=== PATIENT | female | born 1940 | race Caucasian/White ===

== ENCOUNTER 2017-12-28 21:54 | Emergency (ER) | payer MEDICARE, OTHER ==
[~2017-12-28] VITALS: Ht 167.6 cm; Wt 77.1 kg
[~2017-12-28 21:54] MED LIST: ? ANTIDEPRESSANT; CITA20 PO; CYCL10 PO; ESTR2 PO; Estradiol1 MG PO; LEVSOD50 PO; LISHYD1012 PO; LISHYD2025 PO; LISI20 PO; Levothyroxine200 MCG PO; Milk Of Ma400 MG/5 M PO; NASACORT10.8 ML INH; OXYC5 PO; SENN187 PO; [UNRECOGNIZED DRUG - REMARK]; [UNRECOGNIZED DRUG - REMARK]
[2017-12-28] MEDS ORDERED: ESTR2 PO (21:59)
[2017-12-28 22:21] LABS: BASOPHILS ABSOLUTE AUTO 0.05 K/mm3 (0.00-0.23); BASOPHILS PERCENT AUTO 1 % (0-2); EOSINOPHILS PERCENT AUTO 4 % (0-6); Hemoglobin 13.1 g/dL (11.5-16.0); IMMATURE GRAN ABSOLUTE AUTO 0.02 K/mm3 (0.00-0.10); IMMATURE GRAN PERCENT AUTO 0 % (0-1); LYMPHOCYTES ABSOLUTE AUTO 2.12 K/mm3 (0.84-5.20); LYMPHOCYTES PERCENT AUTO 26 % (21-46); MONOCYTES ABSOLUTE AUTO 0.79 K/mm3 (0.16-1.47); MONOCYTES PERCENT AUTO 10 % (4-13); Mean Corpuscular HGB 29.9 pg (26.0-34.0); Mean Corpuscular HGB Conc 33.6 g/dL (31.5-36.5); Mean Corpuscular Volume 89 fL (80-100); Mean Platelet Volume 9.2 fL (9.1-12.4); NEUTROPHILS ABSOLUTE AUTO 4.81 K/mm3 (1.96-9.15); NEUTROPHILS PERCENT AUTO 60 % (41-73); Platelet Count 265 K/mm3 (150-400); RDW Coefficient Variation 12.7 % (11.7-14.2); RDW Standard Deviation 41.4 fL (35.1-46.3); Red Blood Cell Count 4.38 M/mm3 (3.80-5.20); White Blood Cell Count 8.09 K/mm3 (4.00-11.30)
[2017-12-28 22:42] LABS: Alanine Aminotransfer (ALT/SGP 20 U/L (12-78); Albumin, Blood 3.4 g/dL (3.4-5.0); Alk Phos 83 U/L (50-136); Anion Gap 9 mmol/L (6-16); Aspartate Aminotrans (AST/SGOT 20 U/L (12-37); Bilirubin, Total 0.1 mg/dL (0.1-1.0); Blood Urea Nitrogen 14 mg/dL (8-24); Bun/Creatinine Ratio 16.6 (12.0-20.0); CO2, Blood 23 mmol/L (21-32); Calcium, Blood 8.6 mg/dL (8.5-10.1); Chloride, Blood 103 mmol/L (98-108); Creatinine, Blood 0.85 mg/dL (0.40-1.00); Globulin, Blood 3.5 g/dL (2.2-4.0); Glomerular Filtration Rate >60 (60-); Glucose, Blood 89 mg/dL (70-99); Potassium, Blood 3.7 mmol/L (3.5-5.5); Sodium, Blood 135 mmol/L (136-145); Total Protein, Blood 6.9 g/dL (6.4-8.2); Troponin I <0.015 ng/mL (0.000-0.040)
[2017-12-29] MEDS ORDERED: PROM25 PO (00:53)
[2017-12-29] MEDS ORDERED: Pepcid40 MG PO (00:53)
[2017-12-29] MEDS ORDERED: HYDR1TAB94 PO (00:53)
== END 2017-12-29 01:13 | disposition home or self-care (01) ==
LOC: ER 21:54
PROVIDERS: Emergency Medicine
DX: R10.10 Upper abdominal pain, unspecified (principal); I10 Essential (primary) hypertension; F32.9 Major depressive disorder, single episode, unspecified; Z79.899 Other long term (current) drug therapy
CPT/HCPCS: 36415; 71046; 80053; 83690; 84484; 85025; 93005; 93010; 96360; 99284; J7030

== ENCOUNTER → 2017-12-30 | Outpatient (CLI) | payer MEDICARE, OTHER ==
[~2017-12-30] MED LIST changes: +HYDR1TAB94 PO; +PROM25 PO; +Pepcid40 MG PO
== END | disposition home or self-care (01) ==
LOC: LAB SHORT 13:06 → LAB EV 13:06
DX: N39.0 Urinary tract infection, site not specified (principal)
CPT/HCPCS: 87086

== ENCOUNTER 2018-10-31 17:31 | Emergency (ER) | payer MEDICARE, OTHER ==
[~2018-10-31] VITALS: Ht 167.6 cm; Wt 70.3 kg
[2018-10-31] MEDS ORDERED: Zithromax250 MG PO (19:50)
== END 2018-10-31 19:55 | disposition home or self-care (01) ==
LOC: ER 17:31
DX: R59.0 Localized enlarged lymph nodes (principal); Z79.899 Other long term (current) drug therapy
CPT/HCPCS: 76604; 99283-25

== ENCOUNTER 2018-11-03 20:13 | Emergency (ER) | payer MEDICARE, OTHER ==
[~2018-11-03] VITALS: Ht 172.7 cm; Wt 74.8 kg
[~2018-11-03 20:13] MED LIST changes: +Zithromax250 MG PO
[2018-11-03] MEDS ORDERED: CEFD300 PO (20:19)
[2018-11-03] MEDS ORDERED: Percocet 5-3251 EACH PO (20:19)
[2018-11-04] MEDS ORDERED: Prednisone20 MG PO (00:18)
== END 2018-11-04 00:42 | disposition home or self-care (01) ==
LOC: ER 20:13
DX: R68.84 Jaw pain (principal); R59.0 Localized enlarged lymph nodes; Z79.899 Other long term (current) drug therapy; Z79.52 Long term (current) use of systemic steroids
CPT/HCPCS: 64400; 71046; 99283-25

== ENCOUNTER 2018-11-15 08:11 | Day surgery (SDC) | payer MEDICARE, OTHER ==
[~2018-11-15 08:11] MED LIST changes: +CEFD300 PO; +Percocet 5-3251 EACH PO; +Prednisone20 MG PO
== END 2018-11-15 23:04 | disposition home or self-care (01) ==
LOC: MOI US 08:11
DX: C83.34 Diffuse large B-cell lymphoma, lymph nodes of axilla and upper limb (principal); R59.0 Localized enlarged lymph nodes
CPT/HCPCS: 38505; 76942; 88305; 88341; 88342

== ENCOUNTER 2018-11-23 16:40 | Inpatient (IN) | payer MEDICARE, OTHER ==
[~2018-11-23] VITALS: Ht 167.6 cm; Wt 71.9 kg
[2018-11-23 17:35] LABS: BASOPHILS ABSOLUTE AUTO 0.02 K/mm3 (0.00-0.23); BASOPHILS PERCENT AUTO 0 % (0-2); EOSINOPHILS ABSOLUTE AUTO 0.15 K/mm3 (0.00-0.68); EOSINOPHILS PERCENT AUTO 2 % (0-6); Hematocrit 39.2 % (33.0-51.0); Hemoglobin 12.7 g/dL (11.5-16.0); IMMATURE GRAN ABSOLUTE AUTO 0.04 K/mm3 (0.00-0.10); IMMATURE GRAN PERCENT AUTO 0 % (0-1); LYMPHOCYTES ABSOLUTE AUTO 0.48 K/mm3 (0.84-5.20); LYMPHOCYTES PERCENT AUTO 5 % (21-46); MONOCYTES PERCENT AUTO 10 % (4-13); Mean Corpuscular HGB 29.6 pg (26.0-34.0); Mean Corpuscular HGB Conc 32.4 g/dL (31.5-36.5); Mean Corpuscular Volume 91 fL (80-100); Mean Platelet Volume 8.2 fL (9.1-12.4); NEUTROPHILS ABSOLUTE AUTO 8.57 K/mm3 (1.96-9.15); NEUTROPHILS PERCENT AUTO 84 % (41-73); Platelet Count 307 K/mm3 (150-400); RDW Standard Deviation 43.2 fL (35.1-46.3); Red Blood Cell Count 4.29 M/mm3 (3.80-5.20); White Blood Cell Count 10.26 K/mm3 (4.00-11.30)
[2018-11-23 17:54] LABS: Albumin/Globulin Ratio 0.8 (0.8-1.8); Bilirubin, Total 0.4 mg/dL (0.1-1.0); Bun/Creatinine Ratio 10.9 (12.0-20.0); Calcium, Blood 9.1 mg/dL (8.5-10.1); Creatinine, Blood 3.77 mg/dL (0.40-1.00); Potassium, Blood 5.2 mmol/L (3.5-5.5)
[2018-11-23 23:46] LABS: Source, Urine Clean Catch
[2018-11-23 23:48] LABS: Bilirubin, Urine Neg (Neg); Blood, Urine Neg (Neg); Glucose Qualitative, Urine Neg (Neg); Ketones, Urine Neg (Neg); Leukocyte Esterase, Urine Neg (Neg); Nitrite, Urine Neg (Neg); Protein, Urine 1+ (Neg); Urobilinogen, Urine NORM (Normal)
[2018-11-23 23:50] LABS: Appearance, Urine Hazy (Clear); Color, Urine Yellow (P-Yellow)
[2018-11-23 23:53] LABS: Bacteria Many /hpf; Red Blood Cells, Urine 0-2 /hpf (0-2); Squamous Epithelial Cells Many /hpf (Few)
[2018-11-24 04:43] LABS: Hematocrit 33.6 % (33.0-51.0); Hemoglobin 10.7 g/dL (11.5-16.0); Mean Corpuscular HGB 29.5 pg (26.0-34.0); Mean Corpuscular HGB Conc 31.8 g/dL (31.5-36.5); Mean Corpuscular Volume 93 fL (80-100); Mean Platelet Volume 8.6 fL (9.1-12.4); Platelet Count 256 K/mm3 (150-400); RDW Coefficient Variation 12.8 % (11.7-14.2); RDW Standard Deviation 43.1 fL (35.1-46.3); Red Blood Cell Count 3.63 M/mm3 (3.80-5.20); White Blood Cell Count 8.67 K/mm3 (4.00-11.30)
[2018-11-24 05:04] LABS: Albumin, Blood 2.5 g/dL (3.4-5.0); Albumin/Globulin Ratio 0.8 (0.8-1.8); Bilirubin, Total 0.6 mg/dL (0.1-1.0); Calcium, Blood 8.5 mg/dL (8.5-10.1); Creatinine, Blood 4.1 mg/dL (0.40-1.00); Globulin, Blood 3.3 g/dL (2.2-4.0); Potassium, Blood 5.3 mmol/L (3.5-5.5); Total Protein, Blood 5.8 g/dL (6.4-8.2)
[2018-11-24 08:46] LABS: International Normalized Ratio 0.97; Prothrombin Time Results 10.3 Sec (9.7-11.5)
[2018-11-24] MEDS ORDERED: OXYC10TA19 PO (13:32)
[2018-11-24] MEDS ORDERED: BENADRYL25 MG PO (13:33)
[2018-11-24] MEDS ORDERED: MAGNESIUM400 MG PO (13:35)
[2018-11-24] MEDS ORDERED: DOCU100 PO (13:36)
--- NOTE | 2018-11-24 16:22 | NUR ---
PT ARRIVED TO THE MEDICAL FLOOR FROM THE ER AROUND 1400, A/OX3, PLEASANT AND COOOPERATIVE, THE PT IS UP IND IN HER ROOM THE PT WAS ORIENTED TO THE ROOM CALL SYSTEM AND LAY OUT, FAMILY AT THE BEDSIDE, DR. HAYNES CAME IN TO CONSULT THE PT , THE PT IS TO BE TAKEN FOR NEPHROSTOMY TUBE PLACEMENT EITHER TONOIGHT OR TOMARROW AM, THE PT REPORTED HER VIRGIL 1/10 AT THIS TIME, THE PT IS NPO AT THIS TIME, CALL LIGHT IN REACH, WILL CONTINUE TO MONITOR AND ASSESS FOR CHANGES
--- NOTE | 2018-11-25 04:51 | NUR ---
SHIFT SUMMARY A/O, ABLE TO MAKE NEEDS KNOWN. COOPERATIVE WITH CARE. INDEPENDENT IN THE ROOM. NO C/O PAIN/DISCOMFORT. COMPLETED IV FLUIDS. VOIDING IN RESTROOM WITHOUT COMPLICATIONS. NOTED HYPERTENSION THIS AM; APPEARS TO BE ON TREND WITH PREVIOUS PRESSURES. ALL OTHER VS WNL. NPO AFTER MIDNIGHT. DR. HAYNES INTO VISIT PATIENT AROUND DINNER TIME ON 11/24/18. APPEARED TO REST MUCH OF SHIFT. NEW 20G IV PLACED TO RFA. NO ACUTE CHANGES OVERNIGHT. BED IN LOWEST POSITION. CALL LIGHT AND BELONGINGS WITHIN REACH. WCTM. REPORT TO ONCOMING RN.
[2018-11-25 13:00] LABS: BASOPHILS ABSOLUTE AUTO 0.01 K/mm3 (0.00-0.23); BASOPHILS PERCENT AUTO 0 % (0-2); EOSINOPHILS PERCENT AUTO 0 % (0-6); Hematocrit 34.8 % (33.0-51.0); Hemoglobin 11.1 g/dL (11.5-16.0); IMMATURE GRAN ABSOLUTE AUTO 0.07 K/mm3 (0.00-0.10); IMMATURE GRAN PERCENT AUTO 1 % (0-1); LYMPHOCYTES ABSOLUTE AUTO 0.29 K/mm3 (0.84-5.20); LYMPHOCYTES PERCENT AUTO 2 % (21-46); MONOCYTES PERCENT AUTO 4 % (4-13); Mean Corpuscular HGB 29.8 pg (26.0-34.0); Mean Corpuscular HGB Conc 31.9 g/dL (31.5-36.5); Mean Corpuscular Volume 93 fL (80-100); Mean Platelet Volume 8.2 fL (9.1-12.4); NEUTROPHILS ABSOLUTE AUTO 11.41 K/mm3 (1.96-9.15); NEUTROPHILS PERCENT AUTO 93 % (41-73); Platelet Count 292 K/mm3 (150-400); RDW Coefficient Variation 12.9 % (11.7-14.2); RDW Standard Deviation 44.2 fL (35.1-46.3); Red Blood Cell Count 3.73 M/mm3 (3.80-5.20); White Blood Cell Count 12.28 K/mm3 (4.00-11.30)
[2018-11-25 13:16] LABS: Bun/Creatinine Ratio 12.7 (12.0-20.0); Calcium, Blood 8.8 mg/dL (8.5-10.1); Creatinine, Blood 3.79 mg/dL (0.40-1.00); Potassium, Blood 4.7 mmol/L (3.5-5.5)
--- NOTE | 2018-11-25 19:19 | NUR ---
SHIFT SUMMARY: PT A&O; INDEPENDENT IN ROOM. BILATERAL NEPHROSTOMIES c STENTS THIS AM; DRAINS PATENT & DRAINING. MEDICATED FOR PAIN PER EMAR. MEDIPORT PLACEMENT PLANNED FOR 11/26 IN AM-DR KIRK; PT NPO AFTER MIDNIGHT. REPORT GIVEN TO ONCOMING RN.
--- NOTE | 2018-11-26 04:03 | NUR ---
SHIFT SUMMARY PATIENT HAD NO ACUTE CHANGES OBSERVED THIS SHIFT. AXOX 4 AND SBA W/BILATERAL NEPHROSTOMY TUBES TO BR. PATIENT REPORTS HER BED/GOWN WET WITHOUT SEEING LEAKS FROM TUBES. NO LEAKS OBSERVED. REPORTS FLANK PAIN X 2 AND RECEIVED FENTANYL 50 MCG PER EMAR. PATIENT PAIN REDUCED FOR 5.5 HRS AND ABLE TO SLEEP. BP 182/65 AT SHIFT CHANGE AND REDUCED TO 171/69. DAUGHTER STAYED IN ROOM T/O NIGHT. PIV REMAINS INTACT. ZONING TECHNICIAN REPORTS NSR 71. COOPERATIVE WITH CARE. CALL LIGHT IN REACH. BED IN LOWEST POSITION. WILL CONTINUE TO MONITOR UNTIL DAY SHIFT NURSE ASSUMES CARE.
[2018-11-26 05:13] LABS: BASOPHILS ABSOLUTE AUTO 0.01 K/mm3 (0.00-0.23); BASOPHILS PERCENT AUTO 0 % (0-2); EOSINOPHILS ABSOLUTE AUTO 0.02 K/mm3 (0.00-0.68); EOSINOPHILS PERCENT AUTO 0 % (0-6); Hemoglobin 9.7 g/dL (11.5-16.0); IMMATURE GRAN ABSOLUTE AUTO 0.09 K/mm3 (0.00-0.10); IMMATURE GRAN PERCENT AUTO 1 % (0-1); LYMPHOCYTES PERCENT AUTO 4 % (21-46); MONOCYTES ABSOLUTE AUTO 0.96 K/mm3 (0.16-1.47); MONOCYTES PERCENT AUTO 7 % (4-13); Mean Corpuscular HGB Conc 32.3 g/dL (31.5-36.5); Mean Platelet Volume 8.6 fL (9.1-12.4); NEUTROPHILS ABSOLUTE AUTO 11.54 K/mm3 (1.96-9.15); NEUTROPHILS PERCENT AUTO 88 % (41-73); Platelet Count 283 K/mm3 (150-400); RDW Coefficient Variation 12.8 % (11.7-14.2); RDW Standard Deviation 42.2 fL (35.1-46.3); Red Blood Cell Count 3.34 M/mm3 (3.80-5.20); White Blood Cell Count 13.12 K/mm3 (4.00-11.30)
[2018-11-26 05:17] LABS: Mean Corpuscular Volume 90 fL (80-100)
[2018-11-26 05:46] LABS: Albumin, Blood 2.6 g/dL (3.4-5.0); Albumin/Globulin Ratio 0.8 (0.8-1.8); Bilirubin, Total 0.3 mg/dL (0.1-1.0); Bun/Creatinine Ratio 15.5 (12.0-20.0); Calcium, Blood 8.8 mg/dL (8.5-10.1); Creatinine, Blood 3.03 mg/dL (0.40-1.00); Globulin, Blood 3.3 g/dL (2.2-4.0); Potassium, Blood 4.8 mmol/L (3.5-5.5); Total Protein, Blood 5.9 g/dL (6.4-8.2)
--- NOTE | 2018-11-26 08:45 | NUR ---
INTO [facility] VIA GURNEY. PT [id number] PAIN AT THIS TIME. PT APPEARS SOMEWHAT ANXIOUS. BP 223/90. 12 LEAD EKG COMPLETED UPON ARRIVAL TO [facility]. LUNGS CLEAR-SATS>90% ON RA. NPO STATUS CONFIRMED. NEPHROSTOMY TUBES NOTED BILATERALLY-DRAINING [place] COLORED URINE TO BSD. HISTORY AND ALLERGIES REVIEWED.
--- NOTE | 2018-11-26 18:44 | NUR ---
SHIFT SUMMARY: NO ACUTE CHANGES TO REPORT THIS SHIFT. PT A&O; CALM AND COOPERATIVE WITH CARE; INDEPENDENT IN ROOM. MEDIPORT PLACED TO R CHEST THIS SHIFT. BILATERAL NEPHROSTOMIES 11/25; PATENT AND DRAINING; MEDICATED FOR PAIN PER EMAR. TELE IN PLACE; SR @ 80 PER PRINTING MANAGER DURING MORNING ASSESSMENT. CHEMO SCHEDULED FOR THURSDAY, 11/29. VINAY.
[2018-11-27 05:32] LABS: BASOPHILS PERCENT AUTO 0 % (0-2); EOSINOPHILS ABSOLUTE AUTO 0.02 K/mm3 (0.00-0.68); EOSINOPHILS PERCENT AUTO 0 % (0-6); Hematocrit 29.4 % (33.0-51.0); Hemoglobin 9.6 g/dL (11.5-16.0); IMMATURE GRAN ABSOLUTE AUTO 0.05 K/mm3 (0.00-0.10); IMMATURE GRAN PERCENT AUTO 0 % (0-1); LYMPHOCYTES ABSOLUTE AUTO 0.52 K/mm3 (0.84-5.20); LYMPHOCYTES PERCENT AUTO 5 % (21-46); MONOCYTES ABSOLUTE AUTO 0.82 K/mm3 (0.16-1.47); MONOCYTES PERCENT AUTO 7 % (4-13); Mean Corpuscular HGB Conc 32.7 g/dL (31.5-36.5); Mean Corpuscular Volume 92 fL (80-100); Mean Platelet Volume 8.7 fL (9.1-12.4); NEUTROPHILS ABSOLUTE AUTO 10.09 K/mm3 (1.96-9.15); NEUTROPHILS PERCENT AUTO 88 % (41-73); Platelet Count 274 K/mm3 (150-400); RDW Coefficient Variation 12.9 % (11.7-14.2)
--- NOTE | 2018-11-27 05:49 | NUR ---
SHIFT SUMMARY PT NEPHROSTOMY TUBES DRAINING WELL. PT MEDICATED WITH FENTANYL X2 DURING THE NIGHT FOR BILAT FLANK PAIN. SLEPT FAIR DURING THE NIGHT. DAUGHTER STAYED T/O NIGHT. NO ACUTE CHANGES NOTED, WILL CONTINUE TO MONITOR.
[2018-11-27 06:32] LABS: Bun/Creatinine Ratio 19.1 (12.0-20.0); Calcium, Blood 8.6 mg/dL (8.5-10.1); Creatinine, Blood 2.04 mg/dL (0.40-1.00); Potassium, Blood 4.4 mmol/L (3.5-5.5)
--- NOTE | 2018-11-27 18:12 | NUR ---
SHIFT SUMMARY PATIENT A&O X4, SBA TO BATHROOM. C/O BILAT FLANK PAIN THROUGHOUT THE SHIFT. RN MEDICATED PER E NOV. DENIES SOB OR NAUSEA. FLUIDS RUNNING @ 75. LEFT AND RIGHT NEPHROSTOMY PLACE 11/25/18, PATENT AND DRAINING A LIGHT PINK FLUID. SITES BOTH WNL. FAMILY AT HER SIDE THROUGHOUT THE SHIFT. NO OTHER AUCTE CHANGES. RN WILL CONTINUE TO MONITOR.
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
[2018-11-28 05:32] LABS: BASOPHILS ABSOLUTE AUTO 0.01 K/mm3 (0.00-0.23); BASOPHILS PERCENT AUTO 0 % (0-2); EOSINOPHILS ABSOLUTE AUTO 0.03 K/mm3 (0.00-0.68); EOSINOPHILS PERCENT AUTO 0 % (0-6); Hematocrit 32.8 % (33.0-51.0); Hemoglobin 10.7 g/dL (11.5-16.0); IMMATURE GRAN ABSOLUTE AUTO 0.06 K/mm3 (0.00-0.10); IMMATURE GRAN PERCENT AUTO 1 % (0-1); LYMPHOCYTES PERCENT AUTO 8 % (21-46); MONOCYTES ABSOLUTE AUTO 1.25 K/mm3 (0.16-1.47); MONOCYTES PERCENT AUTO 11 % (4-13); Mean Corpuscular HGB 29.5 pg (26.0-34.0); Mean Corpuscular HGB Conc 32.6 g/dL (31.5-36.5); Mean Corpuscular Volume 90 fL (80-100); Mean Platelet Volume 8.5 fL (9.1-12.4); NEUTROPHILS PERCENT AUTO 80 % (41-73); Platelet Count 316 K/mm3 (150-400); RDW Coefficient Variation 12.9 % (11.7-14.2); Red Blood Cell Count 3.63 M/mm3 (3.80-5.20); White Blood Cell Count 11.25 K/mm3 (4.00-11.30)
[2018-11-28 05:53] LABS: Albumin, Blood 2.7 g/dL (3.4-5.0); Anion Gap 9 mmol/L (6-16); Blood Urea Nitrogen 30 mg/dL (8-24); Bun/Creatinine Ratio 23.8 (12.0-20.0); CO2, Blood 26 mmol/L (21-32); Calcium, Blood 8.8 mg/dL (8.5-10.1); Chloride, Blood 104 mmol/L (98-108); Creatinine, Blood 1.26 mg/dL (0.40-1.00); Glomerular Filtration Rate 44 (60-); Glucose, Blood 91 mg/dL (70-99); Phosphorus, Blood 2.7 mg/dL (2.5-4.9); Potassium, Blood 3.5 mmol/L (3.5-5.5); Sodium, Blood 139 mmol/L (136-145)
--- NOTE | 2018-11-28 19:39 | NUR ---
SHIFT SUMMARY PATIETN A&O X4, SBA TO BATHROOM. C/O BILAT FLANK PAIN AND NAUSEA THIS SHIFT. RN MEDICATED FOR PAIN X1 AND NAUSEA X1. PT BP WAS 199/94 @ 0733. DR. LY NOTIFIED. RN MEDICATED PER Nov. PATIENT LEFT AND RIGHT NEPHROSTOMY PATENT, DRAINING LIGHT PINK TINGED FLUID. BOTH SITE APPEAR WNL, NO SIGNS OF INFECTION. FAMILY AT PATIENT SIDE THROUGHOUT SHIFT. NO OTHER ACUTE CHANGES. CALL LIGHT WITHIN REACH.
--- NOTE | 2018-11-28 19:56 | NUR ---
CALL LIGHT IN REACH, FAMILY AT BEDSIDE. BEDREST. DOES NOT WANT BOTHERED. WANTS TO REST. DOUBLE SIDED FOLLEY. CONTINENT OF BOWELS. REFILLED WATER - INTAKE WAS 800ML.
--- NOTE | 2018-11-29 04:43 | NUR ---
SHIFT SUMMARY PT SLEPT WELL DURING THE NIGHT. B/P REMAINING IN THE 160'S/80'S DURING THE NIGHT. PT SATISFIED WITH B/P NUMBERS. PT MEDICATED WITH FENTANYL FOR PAIN X1. NEPHROSTOMY X2 DRAINING WELL. IVF'S INFUSING WITHOUT DIFFICULTY. NO ACUTE CHANGES NOTED, WILL CONTINUE TO MONITOR.
[2018-11-29 05:34] LABS: BASOPHILS ABSOLUTE AUTO 0.01 K/mm3 (0.00-0.23); BASOPHILS PERCENT AUTO 0 % (0-2); EOSINOPHILS ABSOLUTE AUTO 0.04 K/mm3 (0.00-0.68); EOSINOPHILS PERCENT AUTO 0 % (0-6); Hematocrit 32.5 % (33.0-51.0); Hemoglobin 10.6 g/dL (11.5-16.0); IMMATURE GRAN ABSOLUTE AUTO 0.11 K/mm3 (0.00-0.10); IMMATURE GRAN PERCENT AUTO 1 % (0-1); LYMPHOCYTES ABSOLUTE AUTO 1.08 K/mm3 (0.84-5.20); LYMPHOCYTES PERCENT AUTO 11 % (21-46); MONOCYTES ABSOLUTE AUTO 1.15 K/mm3 (0.16-1.47); MONOCYTES PERCENT AUTO 11 % (4-13); Mean Corpuscular HGB 29.6 pg (26.0-34.0); Mean Corpuscular HGB Conc 32.6 g/dL (31.5-36.5); Mean Corpuscular Volume 91 fL (80-100); Mean Platelet Volume 8.3 fL (9.1-12.4); NEUTROPHILS PERCENT AUTO 77 % (41-73); Platelet Count 336 K/mm3 (150-400); RDW Coefficient Variation 12.8 % (11.7-14.2); Red Blood Cell Count 3.58 M/mm3 (3.80-5.20); White Blood Cell Count 10.29 K/mm3 (4.00-11.30)
[2018-11-29 06:00] LABS: Albumin, Blood 2.6 g/dL (3.4-5.0); Albumin/Globulin Ratio 0.8 (0.8-1.8); Bilirubin, Total 0.6 mg/dL (0.1-1.0); Bun/Creatinine Ratio 22.3 (12.0-20.0); Calcium, Blood 8.4 mg/dL (8.5-10.1); Creatinine, Blood 1.12 mg/dL (0.40-1.00); Globulin, Blood 3.1 g/dL (2.2-4.0); Potassium, Blood 3.7 mmol/L (3.5-5.5); Thyroid Stimulating Hormone 0.933 uIU/mL (0.360-4.800); Total Protein, Blood 5.7 g/dL (6.4-8.2)
--- NOTE | 2018-11-29 15:56 | NUR ---
HAS TOLERATED CHEMO WELL T/O DAY. ALL PRE-MEDS GIVEN PER PRIOR TO BEGINNING CHEMO. FINAL BAG RITUXIMAB NOW HANGING AND WILL TITRATE TO GOAL RATE. SUPPORTIVE FAMILY AT BEDSIDE. VSS. TREATED FOR PAIN TO BILAT FLANKS TIMES 1 THIS MORNING. HAS DENIED PAIN SINCE. FREQUENTLY WALKS IN HALLS. MILK OF MAG GIVEN PER PT REQUEST. PLEASANT/COOP WITH CARE.
--- NOTE | 2018-11-29 18:42 | NUR ---
FINAL CHEMO BAG INFUSING AND AT GOAL RATE(RITUXIMAB) PT TOLERATING WELL. NO ACUTE CHANGES.
--- NOTE | 2018-11-29 21:43 | NUR ---
REINFORCED RIGHT NEPHROSTOMY SITE WITH A DRAIN GAUZE AND TRANSPARENT DRESSING. DRESSING LEAKING A SMALL AMOUNT OF SEROUSANGUINEOUS FLUID, DRESSING HAD LOOSEN FROM NORMAL MOVEMENT. WILL MONITOR.
--- NOTE | 2018-11-30 00:39 | NUR ---
MEDICATED PT FOR NAUSEA WITH 8MG IV ZOFRAN. NO OTHER NEEDS. CALL LT IN REACH. DAUGHTER AT BEDSIDE.
--- NOTE | 2018-11-30 03:25 | NUR ---
SHIFT SUMMARY: PT TOLERATED RECEIVING CHEMO IV DURING DAYSHIFT. A/O, PLEASANT AND COOPERATIVE. MEDICATED X 1 WITH FENTANYL FOR RIGHT FLANK PAIN. GAVE 8MG ZOFRAN FOR NAUSEA. NEPHROSTOMY'S X 2 PATENT AND DRAINING YELLOW URINE. RIGHT NEPHROSTOMY OUTPUT GREATER THAN LEFT NEPHROSTOMY. AMBULATES WITH SBA USING FWW. EARLY IN SHIFT PT AMBULATED IN [place] WITH DAUGHTERS. NO ACUTE CHANGES. WILL CONTINUE TO MONITOR AND PROVIDE CARE UNTIL SHIFT REPORT.
[2018-11-30 05:39] LABS: BASOPHILS ABSOLUTE AUTO 0.01 K/mm3 (0.00-0.23); BASOPHILS PERCENT AUTO 0 % (0-2); EOSINOPHILS ABSOLUTE AUTO 0.03 K/mm3 (0.00-0.68); EOSINOPHILS PERCENT AUTO 0 % (0-6); Hematocrit 30.4 % (33.0-51.0); Hemoglobin 9.9 g/dL (11.5-16.0); IMMATURE GRAN ABSOLUTE AUTO 0.09 K/mm3 (0.00-0.10); IMMATURE GRAN PERCENT AUTO 1 % (0-1); LYMPHOCYTES ABSOLUTE AUTO 0.53 K/mm3 (0.84-5.20); LYMPHOCYTES PERCENT AUTO 5 % (21-46); MONOCYTES ABSOLUTE AUTO 0.96 K/mm3 (0.16-1.47); MONOCYTES PERCENT AUTO 9 % (4-13); Mean Corpuscular HGB 29.3 pg (26.0-34.0); Mean Corpuscular HGB Conc 32.6 g/dL (31.5-36.5); Mean Corpuscular Volume 90 fL (80-100); Mean Platelet Volume 8.3 fL (9.1-12.4); NEUTROPHILS ABSOLUTE AUTO 8.73 K/mm3 (1.96-9.15); NEUTROPHILS PERCENT AUTO 84 % (41-73); Platelet Count 276 K/mm3 (150-400); RDW Coefficient Variation 12.5 % (11.7-14.2); RDW Standard Deviation 41.1 fL (35.1-46.3); Red Blood Cell Count 3.38 M/mm3 (3.80-5.20); White Blood Cell Count 10.35 K/mm3 (4.00-11.30)
[2018-11-30 05:53] LABS: Albumin, Blood 2.5 g/dL (3.4-5.0); Anion Gap 7 mmol/L (6-16); Blood Urea Nitrogen 27 mg/dL (8-24); Bun/Creatinine Ratio 24.3 (12.0-20.0); CO2, Blood 26 mmol/L (21-32); Calcium, Blood 7.8 mg/dL (8.5-10.1); Chloride, Blood 105 mmol/L (98-108); Creatinine, Blood 1.11 mg/dL (0.40-1.00); Glomerular Filtration Rate 51 (60-); Glucose, Blood 83 mg/dL (70-99); Phosphorus, Blood 2.7 mg/dL (2.5-4.9); Potassium, Blood 3.8 mmol/L (3.5-5.5); Sodium, Blood 138 mmol/L (136-145)
[2018-11-30] MEDS ORDERED: METO25ER PO (13:50)
[2018-11-30] MEDS ORDERED: ONDA4ODT MM (13:51)
--- NOTE | 2018-11-30 15:28 | NUR ---
[facility]
== END 2018-11-30 15:14 | disposition home health service (06) | DRG 841 ==
LOC: ER 16:40 → ERHOLD 22:50 → MEDS 22:50 → ENPENDDIS 11-30 10:30 → MEDS 11-30 15:14
PROVIDERS: Emergency Medicine; Family Medicine; Internal Medicine; Surgery; ADMIT Internal Medicine
PROC: 0T9430Z Drainage of Left Kidney Pelvis with Drainage Device, Percutaneous Approach (ICD-10-PCS; 2018-11-25)
PROC: 0T9330Z Drainage of Right Kidney Pelvis with Drainage Device, Percutaneous Approach (ICD-10-PCS; 2018-11-25)
PROC: 02HV33Z Insertion of Infusion Device into Superior Vena Cava, Percutaneous Approach (ICD-10-PCS; 2018-11-26)
PROC: 0JH63XZ Insertion of Tunneled Vascular Access Device into Chest Subcutaneous Tissue and Fascia, Percutaneous Approach (ICD-10-PCS; principal; 2018-11-26 09:00)
DX: C83.30 Diffuse large B-cell lymphoma, unspecified site (principal); N17.9 Acute kidney failure, unspecified; N13.8 Other obstructive and reflux uropathy; E86.0 Dehydration; E78.5 Hyperlipidemia, unspecified; M19.90 Unspecified osteoarthritis, unspecified site; I10 Essential (primary) hypertension; M85.80 Other specified disorders of bone density and structure, unspecified site; E03.9 Hypothyroidism, unspecified; Z79.82 Long term (current) use of aspirin; Z79.891 Long term (current) use of opiate analgesic; Z78.0 Asymptomatic menopausal state
CPT/HCPCS: 36415; 50432; 76770; 76937; 77001; 80048; 80053; 80069; 81001; 83880; 84443; 85025; 85027; 85610; 85730; 87086; 93005; 93010; 96361; 96372-59; 96374; 96375; 96376; 99152; 99153; 99284-25; C1769; C1788; C1892; J0360; J0690; J1100; J1200; J1642; J1650; J2250; J2405; J2765; J3010; J7030; J7040; J7050; J7060; J7120; J9000; J9070; J9312; J9370; Q9967

== ENCOUNTER 2018-12-02 10:31 | Day surgery (SDC) | payer MEDICARE, OTHER ==
[~2018-12-02] VITALS: Ht 165.1 cm; Wt 71.0 kg
[~2018-12-02 10:31] MED LIST changes: +BENADRYL25 MG PO; +DOCU100 PO; +MAGNESIUM400 MG PO; +METO25ER PO; +ONDA4ODT MM; +OXYC10TA19 PO
[2018-12-02] MEDS ORDERED: ALLO100 PO (11:34)
[2018-12-02] MEDS ORDERED: METO10 PO (11:34)
--- NOTE | 2018-12-02 17:15 | NUR ---
SUMMARY: POST OPERATIVE COURSE S/P NEPHRECTOMY TUBE REPLACEMENT COMPLICATED BY ELEVATED B/P >200'S SYSTOLIC. PT ASYMPTOMATIC DURING THIS. LABETOLOL 10MG GIVEN IV PER MD ORDER WITH GOOD RESULTS. B/P DECREASED TO 160'S SYSTOLIC PRIOR TO DISCHARGE. PT ALERT, AWAKE, AND CONVERSING WITH NURSING STAFF AND FAMILY DURING RECOVERY. STATES SHE FEELS "SO MUCH BETTER" THAN PREOP. NEPHROSTOMY TUBES DRAINING WITHOUT DIFFICULTY - SLIGHTLY PINK TINGED URINE. NO CLOTES NOTED. EXTENSIVE EDUCATION GIVEN REGARDING NEPHROSTOMY CARE, CHANGING OF BAGS FROM LEG BAG TO NIGHT/HARMON BAG. DEMONSTRATION GIVEN. DISCUSSED PROPER PLACEMENT OF TUBING, DEPENDENT POSITIONS, AND DRAINAGE OF URINE. PT'S DAUGHTER HAS BEEN DOING THIS AT HOME AND IS ABLE TO VERBALIZE APPROPRIATE STEPS TO TAKE REGARDING CHANGING OF BAGS AND CARE OF TUBING. CLARIFYING QUESTIONS ASKED AND ANSWERED. DISCUSSED DRESSING CARE, HOME CARE, MD FOLLOW UP, HOME HEALTH FOLLOW UP. PT ABLE TO DRESS SELF WITH MINIMAL ASSISTANCE FROM DAUGHTER. TRANSFERRED TO WHEELCHAIR WITHOUT DIFFICULTY. PT IV D/C TIP INTACT AND PT D/C HOME WITH DAUGHTER AND TO DRIVE HER. PLANNED FOLLOW UP WITH ONCOLOGIST NEXT THURSDAY.
== END 2018-12-02 14:00 | disposition home or self-care (01) ==
LOC: MHTC 10:31
DX: N17.1 Acute kidney failure with acute cortical necrosis (principal); C83.38 Diffuse large B-cell lymphoma, lymph nodes of multiple sites
CPT/HCPCS: 99152; 99153; C1729; C1769; J2250; J2405; J3010; J7040; Q9967

== ENCOUNTER → 2018-12-21 | Outpatient (CLI) | payer MEDICARE, OTHER ==
[~2018-12-21] MED LIST changes: +ALLO100 PO; +METO10 PO
[2018-12-21 12:04] LABS: Anion Gap 8 mmol/L (6-16); Blood Urea Nitrogen 12 mg/dL (8-24); Bun/Creatinine Ratio 18.8 (12.0-20.0); CO2, Blood 24 mmol/L (21-32); Calcium, Blood 8.3 mg/dL (8.5-10.1); Chloride, Blood 94 mmol/L (98-108); Creatinine, Blood 0.64 mg/dL (0.40-1.00); Glomerular Filtration Rate >60 (60-); Glucose, Blood 152 mg/dL (70-99); Potassium, Blood 3.8 mmol/L (3.5-5.5); Sodium, Blood 126 mmol/L (136-145)
== END | disposition home or self-care (01) ==
LOC: LAB SHORT 11:20 → LAB 11:20
PROVIDERS: Internal Medicine Hematology & Oncology
DX: N17.1 Acute kidney failure with acute cortical necrosis (principal); C83.38 Diffuse large B-cell lymphoma, lymph nodes of multiple sites
CPT/HCPCS: 80048

== ENCOUNTER → 2019-04-23 | Outpatient (CLI) | payer MEDICARE, OTHER ==
[~2019-04-23] MED LIST changes: +ACYC200 PO; +CEPH500 PO; +DEXA4 PO
== END ==
LOC: LAB 11:00 → LAB SHORT 11:00
DX: N39.0 Urinary tract infection, site not specified (principal)
CPT/HCPCS: 87086

== ENCOUNTER 2019-04-25 16:19 | Emergency (ER) | payer MEDICARE, OTHER ==
[~2019-04-25] VITALS: Ht 170.2 cm; Wt 63.5 kg
[~2019-04-25 16:19] MED LIST changes: -ACYC200 PO; -CEPH500 PO; -DEXA4 PO
[2019-04-25 16:55] LABS: BASOPHILS ABSOLUTE AUTO 0.03 K/mm3 (0.00-0.23); BASOPHILS PERCENT AUTO 0 % (0-2); EOSINOPHILS ABSOLUTE AUTO 0.06 K/mm3 (0.00-0.68); EOSINOPHILS PERCENT AUTO 1 % (0-6); Hematocrit 35.6 % (33.0-51.0); Hemoglobin 12.5 g/dL (11.5-16.0); IMMATURE GRAN ABSOLUTE AUTO 0.02 K/mm3 (0.00-0.10); IMMATURE GRAN PERCENT AUTO 0 % (0-1); LYMPHOCYTES ABSOLUTE AUTO 0.52 K/mm3 (0.84-5.20); LYMPHOCYTES PERCENT AUTO 7 % (21-46); MONOCYTES ABSOLUTE AUTO 0.79 K/mm3 (0.16-1.47); MONOCYTES PERCENT AUTO 10 % (4-13); Mean Corpuscular HGB 33.2 pg (26.0-34.0); Mean Corpuscular HGB Conc 35.1 g/dL (31.5-36.5); Mean Corpuscular Volume 95 fL (80-100); Mean Platelet Volume 8.9 fL (9.1-12.4); NEUTROPHILS PERCENT AUTO 82 % (41-73); Platelet Count 253 K/mm3 (150-400); RDW Coefficient Variation 11.9 % (11.7-14.2); RDW Standard Deviation 41.4 fL (35.1-46.3); Red Blood Cell Count 3.76 M/mm3 (3.80-5.20); White Blood Cell Count 8.02 K/mm3 (4.00-11.30)
[2019-04-25 17:07] LABS: Source, Urine Catheter
[2019-04-25 17:11] LABS: Bilirubin, Urine Neg (Neg); Blood, Urine 2+ (Neg); Glucose Qualitative, Urine Neg (Neg); Ketones, Urine 2+ (Neg); Leukocyte Esterase, Urine Neg (Neg); Nitrite, Urine Neg (Neg); Protein, Urine Neg (Neg); Urobilinogen, Urine NORM (Normal)
[2019-04-25 17:11] LABS: Alanine Aminotransfer (ALT/SGP 19 U/L (12-78); Albumin, Blood 3.7 g/dL (3.4-5.0); Albumin/Globulin Ratio 1.2 (0.8-1.8); Alk Phos 85 U/L (50-136); Anion Gap 8 mmol/L (6-16); Aspartate Aminotrans (AST/SGOT 23 U/L (12-37); Bilirubin, Total 0.5 mg/dL (0.1-1.0); Blood Urea Nitrogen 9 mg/dL (8-24); Bun/Creatinine Ratio 11.7 (12.0-20.0); CO2, Blood 23 mmol/L (21-32); Calcium, Blood 8.6 mg/dL (8.5-10.1); Chloride, Blood 103 mmol/L (98-108); Creatinine, Blood 0.77 mg/dL (0.40-1.00); Glomerular Filtration Rate >60 (60-); Glucose, Blood 91 mg/dL (70-99); Potassium, Blood 3.7 mmol/L (3.5-5.5); Prothrombin Time Results 10.6 Sec (9.7-11.5); Sodium, Blood 134 mmol/L (136-145); Total Protein, Blood 6.7 g/dL (6.4-8.2)
[2019-04-25 17:22] LABS: Appearance, Urine Clear (Clear); Color, Urine Pale Yellow (P-Yellow)
[2019-04-25 17:29] LABS: Bacteria Mod /hpf; Red Blood Cells, Urine 0-2 /hpf (0-2); Squamous Epithelial Cells Many /hpf (Few); White Blood Cells, Urine 0-2 /hpf (0-5)
[2019-04-25] MEDS ORDERED: ACYC200 PO (17:56)
[2019-04-25] MEDS ORDERED: CEPH500 PO (17:56)
[2019-04-25] MEDS ORDERED: PROM25 PO (21:54)
[2019-04-25] MEDS ORDERED: DEXA4 PO (21:54)
== END 2019-04-25 22:25 | disposition home or self-care (01) ==
LOC: ER 16:19
PROVIDERS: Physician Assistant
DX: G93.9 Disorder of brain, unspecified (principal); R41.0 Disorientation, unspecified; C85.10 Unspecified B-cell lymphoma, unspecified site; Z79.899 Other long term (current) drug therapy
CPT/HCPCS: 36415; 70450; 70487; 71046; 80053; 81001; 83605; 85025; 85610; 85730; 87040; 87086; 93005; 93010; 99285-25; J1100; Q9967